=== PATIENT | male | born 1960 | race Caucasian/White ===

== ENCOUNTER 2016-05-10 10:06 | Emergency (ER) | payer BC ==
[~2016-05-10] VITALS: Ht 177.8 cm; Wt 76.2 kg
[~2016-05-10 10:06] MED LIST: DILT240C2 PO; LISI-334 PO; RIVA10TA PO
[2016-05-10 10:10] VITALS: BP 161/100
[2016-05-10] MEDS ORDERED: FLUORESCEIN OPHTH TEST STRIP. OS ONE (10:45)
[2016-05-10] MEDS ORDERED: EYE-STREAM OPHTH SOLUTION 120 ML BOTTLE. OS ONE (10:45)
[2016-05-10] MEDS ORDERED: TETRACAINE 0.5% OPHTH SOLUTION 4ML BOTTLE. OS ONE (10:45)
--- NOTE | 2016-05-10 10:47 | PHYS DOC ---
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 He states that he has redness that appears to be red in the left inner part of the eye. Patient denies any change in his visual acuity. Patient states he does wear glasses. Patient states his tetanus immunization is up-to-date. Patient also states that he has been having some nasal congestion with occasional bloody noses in the morning. Patient states his been having some generalized aches and discomfort. Review of Systems Review of Systems Constitutional: Denies fever or chills [] Eyes: Denies change in visual acuity. C/o left eye redness and discomfort HENT: Denies nasal congestion or sore throat [] Respiratory: Denies cough or shortness of breath [] Cardiovascular: No additional information not addressed in HPI [] Musculoskeletal: Denies back pain or joint pain [] Integument: Denies rash or skin lesions [] Neurologic: Denies headache, focal weakness or sensory changes [] Current Medications Current Medications Current Medications Medications (Trade) Dose Ordered Sig/Julianne Start Time Stop Time Status Last Admin Dose Admin Eye Irrigation Solution (Eye-Stream) 120 ml 1X ONCE 05/10/16 10:45 05/10/16 10:46 DC 05/10/16 10:45 120 ML Fluorescein Sodium (Ful-Rosey) 1 strip 1X ONCE 05/10/16 10:45 05/10/16 10:46 DC 05/10/16 10:45 1 STRIP Tetracaine HCl (Tetracaine) 1 drop 1X ONCE 05/10/16 10:45 05/10/16 10:46 DC 05/10/16 10:45 1 DROP Allergies Allergies Allergies Coded Allergies Type Severity Reaction Last Updated Verified No Known Drug Allergies 01/28/14 No Physical Exam Physical Exam Constitutional: Well developed, well nourished, no acute distress, non-toxic appearance. [] HENT: Normocephalic, atraumatic, bilateral external ears normal, oropharynx moist, no oral exudates, nose normal. Bilateral tympanic membranes appear to be normal. Throat with no erythematous drainage or discharge noted. Patient did appear to have swelling in the left naris. Eyes: PERRLA, EOMI, conjunctiva appears to have redness on the inner portion of the left eye., no discharge. [] Neck: Normal range of motion, no tenderness, supple, no stridor. [] Cardiovascular:Heart rate regular rhythm, no murmur [] Lungs & Thorax: Bilateral breath sounds clear to auscultation [] Skin: Warm, dry, no erythema, no rash. [] Back: No tenderness Extremities: No tenderness, no cyanosis, no clubbing, ROM intact, no edema. [] Neurologic: Alert and oriented X 3, normal motor function, normal sensory function, no focal deficits noted. [] Psychologic: Affect normal, judgement normal, mood normal. [] Current Patient Data Vital Signs Vital Signs Date Time Temp Pulse Resp B/P Pulse Ox O2 Delivery O2 Flow Rate FiO2 05/10/16 10:10 98.6 82 18 97 Room Air 98.6 EKG EKG [] Radiology/Procedures Radiology/Procedures [] Course & Med Decision Making Course & Med Decision Making Pertinent Labs and Imaging studies reviewed. (See chart for details) Drop of tetracaine was placed in the left eye. Fluorescein was used with no uptake noted. No foreign object noted in the upper eyelid or in the lower. Patient does have redness on the inner part of the left eye the conjunctivae the area. Patient was recommended to not take aspirin with his Lu. He will be discharged home with recommendations to follow-up with an life insurance actuary tomorrow in which he has an life insurance actuary by Dr. Sullivan and Dina. Patient will be discharged home in stable condition signs and symptoms to return back to emergency department as been provided. Degrees with discharge instructions treatment regimens and follow-up recommendations. [] Dragon Disclaimer Dragon Disclaimer This electronic medical record was generated, in whole or in part, using a voice recognition dictation system. Departure Departure Impression: Primary Impression: Traumatic subconjunctival hemorrhage of left eye Disposition: HOME, SELF-CARE Condition: STABLE Referrals: GUERO HOLGUIN (PCP) Patient Instructions: Subconjunctival Hemorrhage-Brief Additional Instructions: Activity as tolerated Do NOT take Aspirin with your Xarelto Followup with Dr Sullivan and Dina tomorrow Return to emergency department as needed for signs and symptoms that become worse. SHRUTI CHÁVEZ NP May 10, 2016 10:47
== END 2016-05-10 11:51 | disposition home or self-care (01) ==
LOC: ER 10:06
DX: H11.32 Conjunctival hemorrhage, left eye (principal); I10 Essential (primary) hypertension; I48.91 Unspecified atrial fibrillation; X58.XXXA Exposure to other specified factors, initial encounter; Y93.89 Activity, other specified; Y99.8 Other external cause status; Y92.89 Other specified places as the place of occurrence of the external cause
CPT/HCPCS: 99284

== ENCOUNTER → 2017-06-03 | Outpatient (CLI) | payer BC | END | disposition home or self-care (01) | LOC: ECHO 07:31 | DX: I08.1 Rheumatic disorders of both mitral and tricuspid valves (principal); I48.91 Unspecified atrial fibrillation | CPT/HCPCS: 93306 ==

== ENCOUNTER → 2019-06-08 | Outpatient (CLI) | payer BC ==
--- NOTE | 2019-06-08 10:42 | CARD ---
MR#: [id number] Date of Study: 06/08/2019 Ordering Physician: YULIANA MONTEZ, Referring Physician: YULIANA MONTEZ, Tech: Velia Lubin LELAND APPROVED REPORT EXAM: Two-dimensional and M-mode echocardiogram with Doppler and color Doppler. Other Information Quality : AverageHR: 80bpm Rhythm : NSR INDICATION Chest Pain 2D DIMENSIONS RVDd2.8 (2.9-3.5cm)Left Atrium(2D)3.4 (1.6-4.0cm) IVSd1.4 (0.7-1.1cm)Aortic Root(2D)4.1 (2.0-3.7cm) LVDd4.1 (3.9-5.9cm)LVOT Diameter2.2 (1.8-2.4cm) PWd1.1 (0.7-1.1cm)IVSs2.3 (0.8-1.2cm) LVDs2.7 (2.5-4.0cm)FS (%) 35.1 % PWs1.8 (0.8-1.2cm)SV48.7 ml LVEF(%)64.9 (>50%) M-Mode DIMENSIONS Left Atrium(MM)3.70 (2.5-4.0cm)Aortic Root4.02 (2.2-3.7cm) Aortic Valve AoV Peak Terrence.94.7cm/sAoV VTI18.3cm AO Peak GR.3.6mmHgLVOT Peak Terrence.63.6cm/s LVOT VTI 14.28cmAO Mean GR.2mmHg AARTI (VMAX)1.27am7VVF (VTI)3.01cm2 Mitral Valve MV E Oyldzlyj28.7cm/sMV DECEL LCGX380av MV A Hqftphei61.4cm/sMV JPR21de E/A Ratio0.8MVA (PHT)3.55cm2 TDI E/Lateral E'4.2E/Medial E'6.0 Pulmonary Valve PV Peak Zmhguxln97.9cm/sPV Peak Grad.3mmHg Tricuspid Valve TR P. Fybfiusi284wl/sRAP FXIGIOZQ6scRg TR Peak Gr.59kbDfRCFO17irBn LEFT VENTRICLE The left ventricle is normal size. There is mild concentric left ventricular hypertrophy. The left ve ntricular systolic function is normal and the ejection fraction is within normal range. The Ejection Fraction is 60-65%. There is normal LV segmental wall motion. Transmitral Doppler flow pattern is Gra de I-abnormal relaxation pattern. RIGHT VENTRICLE The right ventricle is normal size. There is normal right ventricular wall thickness. The right ventr icular systolic function is normal. ATRIA The left atrium size is normal. The right atrium size is normal. The interatrial septum is intact wit h no evidence for an atrial septal defect or patent foramen ovale as noted on 2-D or Doppler imaging. AORTIC VALVE The aortic valve is normal in structure and function. The aortic valve is trileaflet. Doppler and Col or Flow revealed no significant aortic regurgitation. There is no significant aortic valvular stenosi s. There is no aortic valvular vegetation. MITRAL VALVE The mitral valve is thickened but opens well. There is no evidence of mitral valve prolapse. There is no mitral valve stenosis. Doppler and Color-flow revealed trace mitral regurgitation. TRICUSPID VALVE The tricuspid valve is normal in structure and function. Doppler and Color Flow revealed trace tricus pid regurgitation. The PA pressure was estimated at 21 mmHg. There is no tricuspid valve prolapse or vegetation. There is no tricuspid valve stenosis. PULMONIC VALVE Doppler and Color Flow revealed no pulmonic valvular regurgitation. There is no pulmonic valvular sarahi nosis. GREAT VESSELS The aortic root is mildly enlarged. The ascending aorta is mildly dilated at 3.5 cm. The IVC is xavier l in size and collapses >50% with inspiration. PERICARDIAL EFFUSION There is no evidence of significant pericardial effusion. Critical Notification Critical Value: No <Conclusion> The left ventricular systolic function is normal and the ejection fraction is within normal range. Th e Ejection Fraction is 60-65%. There is normal LV segmental wall motion. The ascending aorta is mildly dilated at 3.5 cm. Signed by : Feliz Beverly, Electronically Approved : 06/08/2019 10:42:23
--- NOTE | 2019-06-08 13:54 | RAD ---
MR#: [id number] Date of Study: 06/08/2019 Ordering Physician: YULIANA MONTEZ, Referring Physician: QUETA RAI Tech: ROBER Butler APPROVED REPORT Test Type: Exercise Stress Nurse/Tech: Yany Anglin R.N. Test Indications: afib Cardiac History: afib, htn, Medications: see ehr Medical History: see ehr Resting ECG: SR with ST depression in II III avf Resting Heart Rate: 90 bpm Resting Blood Pressure: 160/96mmHg Pretest Chest Pain: No chest pain Nurse/Tech Notes lungs cta, heart tones regular Consent: The procedure was explained to the patient in lay terms. Informed consent was witnessed. Julio Cesar eout was entered into [employer]. History and Stress Test performed by LADONNA Raya, ARRT (R) (N) Stress Symptoms No chest pain or symptoms. POST EXERCISE Reason for Termination: Reached target heart rate Target HR: Yes Max HR: 150 bpm 93% of Maximum Predicted HR: 161 bpm Exercise duration: 7:45 min:sec, 3 Stage Exercise capacity: 10.0METs Max Blood Pressure: 174/84mmHg Blood Pressure response to exercise: Normal blood pressure response during stress. Heart Rate response to exercise: normal Chest Pain: No. Arrhythmia: No. ST Change: No. INTERPRETATION Stress EKG Conclusion: Baseline EKG showed sinus rhythm. No ischemic changes at peak stress. No arr hythmias. Imaging Protocol IMAGE PROTOCOL: Rest Tc-99m/stress Tc-99m 1 day Rest: Stress: Viability: Radiopharm.Tc99m MjwnhmqhuNp18p Sestamibi Cdow08rYu 33mCi Duration 15min. 13min. Img Date 06/08/2019 06/08/2019 Inj-Img Mcck36sin. 60min. Post-Injection Exercise: 1 minute Rest Admin Site:IV - Right WristAdministrator:ROBER Butler Stress Admin Site: IV - Right WristAdministrator: LADONNA Raya, ARRT (R)(N) STRESS DATA End Diast. Vol.97.0mlAv. Heart Rate92.0bpm LVEDV index BSA49.0mlCardiac Output2.3L/min End Syst. Vol.47.0mlCO Index BSA4.6L/min LVESV index BSA24.0mlMyocardial Sikc746.0g Eject. Nefiervh52.0% Stress Scores Regional WT2.00Summed WT11.00 Regional WM1.00Summed WM14.00 LV Perfusion Stress scintigraphic images stress scintigraphic images did not show any significant perfusion defect s. Wall Motion Normal left ventricle systolic function with ejection fraction calculated at 52%. LV Perf. Quant 17 Seg. SSS0.00 Stress Defect Extent (% LAD)0.00Rest Defect Extent (% LAD)Rev. Defect Extent (% LAD)0.00 Stress Defect Extent (% LCX) 0.00Rest Defect Extent (% LCX)Rev. Defect Extent (% LCX)0.00 Stress Defect Extent (% RCA)0.00Rest Defect Extent (% RCA)Rev. Defect Extent (% RCA)0.00 Stress Defect Extent (% ODILIA)0.00Rest Defect Extent (% ODILIA)Rev. Defect Extent (% ODILIA)0.00 Conclusion 1. Treadmill exercise cardioisotope stress test did not show any evidence of ischemia or infarct. 2. Normal left ventricular systolic function with ejection fraction calculated at 52%. 3. Low risk for cardiac events. Signed by : Yuliana Montez, Electronically Approved : 06/08/2019 13:54:24
== END | disposition home or self-care (01) ==
LOC: NM 06:57
PROVIDERS: ATTEND Internal Medicine Cardiovascular Disease
DX: I51.7 Cardiomegaly (principal); I77.89 Other specified disorders of arteries and arterioles; I48.91 Unspecified atrial fibrillation
CPT/HCPCS: 78452; 93017; 93306; A9500

== ENCOUNTER → 2020-09-17 | Outpatient (CLI) | payer BC ==
[~2020-09-17] MED LIST changes: -LISI-334 PO; +LISI20TA18 PO
--- NOTE | 2020-09-17 11:15 | CARD ---
MR#: [id number] Date of Study: 09/17/2020 Ordering Physician: YULIANA MONTEZ, Referring Physician: YULIANA MONTEZ Tech: Alla Gray [facility] APPROVED REPORT EXAM: Two-dimensional and M-mode echocardiogram with Doppler and color Doppler. Other Information Quality : AverageHR: 85bpm Rhythm : NSR INDICATION Atrial Fibrillation 2D DIMENSIONS RVDd3.2 (2.9-3.5cm)Left Atrium(2D)4.2 (1.6-4.0cm) IVSd1.1 (0.7-1.1cm)Aortic Root(2D)4.0 (2.0-3.7cm) LVDd4.6 (3.9-5.9cm)LVOT Diameter2.5 (1.8-2.4cm) PWd1.1 (0.7-1.1cm)LVDs2.9 (2.5-4.0cm) FS (%) 35.4 %SV61.6 ml LVEF(%)64.9 (>50%) Aortic Valve AoV Peak Terrence.119.6cm/sAoV VTI23.0cm AO Peak GR.0.0mmHgLVOT Peak Terrence.86.0cm/s AO Mean GR.2mmHgAVA (VMAX)3.60cm2 Mitral Valve MV E Gnnzmnby38.2cm/sMV DECEL XUWY700ss MV A Fwxdipzf67.1cm/sE/A Ratio1.0 Pulmonary Valve PV Peak Koymxeih724.6cm/s Tricuspid Valve TR P. Hxrknvgk569yh/sTR Peak Gr.19mmHg LEFT VENTRICLE The left ventricle is normal size. There is borderline to mild concentric left ventricular hypertroph y. The left ventricular systolic function is normal and the ejection fraction is within normal range. Estimated ejection fraction 60-65% There is normal LV segmental wall motion. The left ventricular di astolic function and filling is normal for age. RIGHT VENTRICLE The right ventricle is normal size. There is normal right ventricular wall thickness. The right ventr icular systolic function is normal. ATRIA The left atrium size is normal. The right atrium size is normal. The interatrial septum is intact wit h no evidence for an atrial septal defect or patent foramen ovale as noted on 2-D or Doppler imaging. AORTIC VALVE The aortic valve is normal in structure and function. Doppler and Color Flow revealed no significant aortic regurgitation. There is no significant aortic valvular stenosis. MITRAL VALVE The mitral valve is normal in structure and function. There is no evidence of mitral valve prolapse. There is no mitral valve stenosis. Doppler and Color-flow revealed mild mitral regurgitation. TRICUSPID VALVE The tricuspid valve is normal in structure and function. Doppler and Color Flow revealed trace tricus pid regurgitation. Estimated PAP 20 mmHg. There is no tricuspid valve stenosis. PULMONIC VALVE Doppler and Color Flow revealed trace pulmonic valvular regurgitation. There is no pulmonic valvular stenosis. GREAT VESSELS The aortic root is normal in size. The ascending aorta is normal in size. The IVC is normal in size a nd collapses >50% with inspiration. PERICARDIAL EFFUSION There is no evidence of significant pericardial effusion. Critical Notification Critical Value: No <Conclusion> The left ventricular systolic function is normal and the ejection fraction is within normal range. E stimated ejection fraction 60-65% There is normal LV segmental wall motion. Signed by : Feliz Beverly, Electronically Approved : 09/17/2020 11:14:53
== END ==
LOC: ECHO 07:22
PROVIDERS: ATTEND Internal Medicine Cardiovascular Disease
DX: I34.0 Nonrheumatic mitral (valve) insufficiency (principal); I48.91 Unspecified atrial fibrillation; I51.7 Cardiomegaly
CPT/HCPCS: 93306